=== PATIENT | female | born 1995 | race Two or more races ===

== ENCOUNTER 2024-04-04 19:57 | Emergency (ER) | payer MEDICAID, SELFPAY ==
[2024-04-04 18:58] VITALS: BMI 34.7
[2024-04-04 19:09] VITALS: BP 128/69; PULSE 118; RESP 100; RESP 19; TEMP 36.9
[2024-04-04 19:13] VITALS: BP 118/59; PULSE 125
[2024-04-04 19:15] VITALS: BP 116/64; PULSE 123
[2024-04-04 20:02] VITALS: BMI 34.7
[2024-04-04 20:07] VITALS: BP 119/78; PULSE 121; RESP 20; TEMP 37.2; O2SAT 96
--- NOTE | 2024-04-04 20:11 | XR_ITS ---
Examination: Complete OB ultrasound greater than 14 weeks Date and time of exam: April 04, 2024 2106 hrs. Indications: Onset right pelvic pain today Findings: Viable intrauterine single fetus with single amniotic sac presentation cephalic Cardiac motion 169 bpm Placenta anterior grade 2 Umbilical cord insertion 3 vessel seen Amniotic fluid index adequate Cervix 3.3 cm Right ovary 3.3 x 1.7 x 2.7 cm arterial flow Left ovary obscured by bowel gas. Composite estimated gestational age based on BPD, head circumference, abdominal circumference, femur length is 20 weeks 2 days Estimated weight 342 g. Survey of intracranial anatomy, spinal anatomy, abdominal anatomy, four-chamber heart performed with no abnormalities identified. Impression: Viable intrauterine gestation cephalic presentation Estimated gestational age 20 weeks 2 days.
--- NOTE | 2024-04-04 20:12 | EDNOTE_ITS ---
ED Abdominal Pain RME/HPI General Chief Complaint: Abdominal Pain Stated complaint: RIGHT UPPER ABD PAIN Time seen by provider: 04/04/24 20:12 Arrival date/time: 04/04/24 19:57 Source: patient, RN notes reviewed and old records reviewed Mode of arrival: ambulatory Limitations: no limitations RME / HPI RME / HPI narrative: 28yof approx 26 weeks gestation presents to ED for RLQ pain that started this morning. Pain worsens with movement and ambulation. No fever, N/V/D, dysuria, hematuria or vaginal bleeding reported. No medications or treatment since symptom onset. Patient cleared by OB upstairs prior to ED eval. Related Data Home Medications ?Medication ?Instructions ?Recorded ?Confirmed vit no.95-ferrous 1 tab PO 04/04/24 fumarate 28 mg-folic acid 800 mcg tablet () Allergies Allergy/AdvReac Type Severity Reaction Status Date / Time No Known Allergies Allergy Verified 03/16/23 11:20 Review of Systems Review of Systems Systems Reviewed: All systems reviewed, normal except as documented Constitutional Constitutional: Denies chills and Denies fever(s) Gastrointestinal Gastrointestinal: Reports abdominal pain, Denies loose stools, Denies nausea and Denies vomiting Genitourinary Genitourinary: Denies abnormal vaginal bleeding, Denies dysuria, Denies flank pain, Denies hematuria and Denies vaginal discharge Past Medical History Past Medical History GASTROINTESTINAL: Positive Obesity HEMATOLOGIC: Positive Anemia Surgical History SURGICAL: Positive Section Social History SMOKING STATUS: Never smoker SUBSTANCE USE: does not use ALCOHOL: Never ED Exam General Limitations: Present no limitations General appearance: Present alert, in no apparent distress and obese Head Head exam: Present atraumatic and normocephalic Eye Eye exam: Present normal appearance, PERRL and EOMI ENT ENT exam: Present normal exam and mucous membranes moist Neck Neck exam: Present normal inspection and full ROM Chest Chest inspection: Present normal inspection and symmetric chest wall rise Respiratory Respiratory exam: Present normal lung sounds bilaterally; Absent respiratory distress Cardiovascular Cardiovascular exam: Present regular rate and normal rhythm Abdominal Exam Abdominal exam: Present soft, tenderness (Mild, RLQ) and other (Gravid uterus); Absent distention, guarding or rebound Extremities Exam Extremities exam: Present normal inspection and full ROM Back Exam Back exam: Absent CVA tenderness (R) or CVA tenderness (L) Neurological Exam Neurological exam: Present alert and oriented X3 Psychiatric Psychiatric exam: Present normal affect and normal mood Skin Skin exam: Present warm, dry, intact and normal color Course Quality Measures none Orders Category Date Time Status heart tone auscultation NEEDED Care 04/04/24 18:54 Completed US OB >= 14 weeks Fetus Stat Exams 04/04/24 20:11 Completed CBC Stat Lab 04/04/24 20:21 Completed CMP [Comprehensive Metabolic Panel] Stat Lab 04/04/24 20:21 Completed Lipase Stat Lab 04/04/24 20:21 Completed UA [Urinalysis] Stat Lab 04/04/24 20:28 Completed Vital Signs Vital signs: Vital Signs Temperature 98.5 F 04/04/24 19:09 Pulse Rate 118 H 04/04/24 19:09 Respiratory Rate 19 04/04/24 19:09 Blood Pressure 128/69 04/04/24 19:09 Abdominal Pain MDM MDM Narrative MDM Narrative:: 28yof approx 26 weeks gestation presents to ED for RLQ pain that started this morning. Pain worsens with movement and ambulation. No fever, N/V/D, dysuria, hematuria or vaginal bleeding reported. No medications or treatment since symptom onset. Patient cleared by OB upstairs prior to ED eval. Patient updated on labs and imaging. Abdominal pain most likely related to . Low suspicion for appendicitis based on history, exam and ED workup; however, encouraged close observation of symptoms over the next 24-48 hours. Strict RTED precautions given. Patient verbalized understanding and is agreeable to plan of care. Patient data External records reviewed:: [facility] previous records (03/16/2023 ED visit for BPBPR) Clinical information provided by:: patient Social determinants that could affect healthcare access:: none Patient has the following chronic illnesses:: Obesity How is presenting disease/condition affected by chronic disease/condition?: exacerbated by Evaluation data The following diagnostics were reviewed and interpreted by me:: lab results and radiology exam(s) Lab and/or radiology exams considered but not ordered:: MRI abdomen: Low suspicion for appendicitis at this time Interpretation Summary: WBC 12 Hgb 12.5 UA negative OB ultrasound: Viable IUP per my read Medications / Prescriptions Medications or Prescriptions considered but not ordered:: No antibiotics recommended at this time Medication administrations:: None Consultations Consultation(s) initiated? (list below): No Diagnosis Differential diagnosis abdominal pain: other (Appendicitis, mesenteric adenitis, round ligament pain, constipation, UTI, missed , kidney stone) Most likely diagnosis given after review of the tests above:: Abdominal pain in Admission Indicated Admission indicated?: not indicated Admission Request Was there a request for admission?: No Disposition Plan Disposition Plan: Discharge Discharge Attestation Discharge Attestation: The patient and all family members were given an opportunity to ask questions and understood the discharge instructions. Discharge instructions specifically effects, indications for sooner follow up or return to the emergency department, and the expected course of current diagnosis. Patient condition: Stable Discharge Plan Plan Patient Disposition: HOME (Self Care) Patient condition on transfer: Stable Prescriptions/Referrals Prescriptions/Med Rec: No Action PNV cmb#95-ferrous fumarate-FA [] 28 mg iron- 800 mcg Tablet 1 tab PO Referrals: No Primary/Family,Physician [Referring Provider] - Problem List Clinical Impression: Abdominal pain in Patient/Caregiver Discharge Instructions Education Materials: ED Abdominal Pain Appendx Poss Additional Instructions: Your abdominal pain may be related to your . Although suspicion is low, appendicitis cannot be ruled out at this time. Observe your symptoms over the next 24 hours. Return to ED for repeat exam if symptoms persist or worsen. Print Language: Bengali Stand Alone Forms: Liseth Award Info., Patient Portal Info Letter, Work/Release Restrictions PA/ESMER Supervising Physician KP Supervising Physician: David
[2024-04-04 20:34] LABS: Collection Type, Urine Clean Catch
[2024-04-04 20:55] LABS: Alanine Aminotransferase 39 U/L (10-49); Albumin, Serum 4.7 gm/dL (3.5-5.0); Albumin/Globulin Ratio 1.7 (1.2-2.2); Alkaline Phosphatase 50 U/L (46-116); Anion Gap 10 (7-16); Aspartate Amino Transferase 31 U/L (0-34); BUN/Creatinine Ratio 13 Ratio (12-20); Bilirubin,Total 0.3 mg/dL (0.3-1.2); Blood Urea Nitrogen < 5 mg/dL (9-23); Calcium 9.8 mg/dL (8.3-10.6); Calcium (Corrected) 9.8 mg/dL (8.5-10.1); Carbon Dioxide 22.3 mMol/L (20.0-31.0); Chloride 102 mMol/L (98-107); Creatinine (Component) 0.4 mg/dL (0.6-1.3); Estimated Creatinine Clearance 208.8 mL/min (>60); Globulin 2.8 gm/dL (2.3-3.5); Glucose 99 mg/dL (74-106); Lipase 43 U/L (12-53); Osmolality,Calculated 265 (275-295); Potassium 3.5 mMol/L (3.4-5.1); Sodium 134 mMol/L (136-145); Total Protein 7.5 gm/dL (5.7-8.2); eGFR > 60 See Note
[2024-04-04 21:00] LABS: Basophils % (Auto) 0 % (0-2.5); Eosinophils % (Auto) 0 % (0-10); Hematocrit 36.8 % (36.0-46.0); Hemoglobin 12.5 g/dL (12.0-16.0); Immature Granulocytes % (Auto) 1 % (0-0); Immature Granulocytes Auto 0.08 Thou/mm3 (0.00-0.00); Lymphocytes # (Auto) 0.9 Thou/mm3 (1.0-4.8); Lymphocytes % (Auto) 7 % (10-50); Mean Corpuscular Volume 82 fL (80-100); Monocytes % (Auto) 8 % (0-12); Neutrophils # (Auto) 10.6 Thou/mm3 (1.8-7.7); Neutrophils % (Auto) 84 % (37-80); Nucleated Red Blood Cell % 0 /100 WBC (0); Platelet Count 269 Thou/mm3 (140-440); RDW Standard Deviation 40.3 fL (36.4-46.3); Red Blood Count 4.47 Miln/mm3 (4.00-5.20); White Blood Count 12.6 Thou/mm3 (3.6-11.0)
[2024-04-04 21:04] LABS: Bilirubin,Urine Negative (Negative); Blood,Urine Trace (Negative); Clarity,Urine Clear (Clear/Hazy); Color,Urine Lt-Yellow (Lt Yel-Yel); Glucose, Urine Negative (Negative); Ketones,Urine 1+ (Negative); Leukocyte Esterase,Urine Negative (Negative); Nitrite,Urine Negative (Negative); Protein,Urine Trace (Neg - Trace); RBC,Urine 3 /hpf (0-3); Specific Gravity,Urine 1.024 (1.001-1.035); Squamous Epithelial Cell,Urine 1 /hpf (0-5); Urobilinogen,Urine Negative mg/dL (0.0-1.0); WBC,Urine < 1 /hpf (0-5)
--- NOTE | 2024-04-04 22:19 | PC.NURSE ---
DISCHARGE FROM ER.
== END 2024-04-04 22:25 | disposition home or self-care (01) ==
LOC: SERX 20:01
PROVIDERS: Physician Assistant; Emergency Provider Emergency Medicine; PCP Physician Assistant
DX: O26.892 Other specified pregnancy related conditions, second trimester (principal); R10.31 Right lower quadrant pain; Z3A.26 26 weeks gestation of pregnancy
CPT/HCPCS: 36415; 59025; 76805; 80053; 81001; 83690; 85025; 99284

== ENCOUNTER 2024-07-24 16:54 | Observation (INO) | payer MEDICAID, SELFPAY ==
[2024-07-24] VITALS (10 sets, daily range): BP systolic 101–114; BP diastolic 58–72; PULSE 93–103; RESP 18–97; TEMP 36.5; O2SAT 97–99; BMI 36.2
== END 2024-07-24 17:50 | disposition home or self-care (01) ==
PROVIDERS: Admitting Provider Obstetrics & Gynecology; PCP Specialist; Visit Provider Obstetrics & Gynecology
DX: O36.8130 Decreased fetal movements, third trimester, not applicable or unspecified (principal); Z3A.35 35 weeks gestation of pregnancy
CPT/HCPCS: 59025; 59899; G0378

== ENCOUNTER 2024-08-08 07:31 | Inpatient (IN) | payer MEDICAID, SELFPAY ==
[2024-08-08] VITALS (42 sets, daily range): BP systolic 100–141; BP diastolic 73–98; PULSE 72–98; RESP 15–98; TEMP 36.3–36.8; O2SAT 93–100; BMI 37.0
[2024-08-08] MEDS: RINGERS LACTATED 1000 ML 1,000 ML 999 ML IV (08:00)
[2024-08-08] MEDS: ONDANSETRON INJ 2 MG/ML INJ 2 ML 4 MG IV (08:11)
[2024-08-08 08:57] LABS: Basophils % (Auto) 0 % (0-2.5); Eosinophils # (Auto) 0.1 Thou/mm3 (0.0-0.5); Eosinophils % (Auto) 1 % (0-10); Hematocrit 32.8 % (36.0-46.0); Hemoglobin 10.2 g/dL (12.0-16.0); Immature Granulocytes % (Auto) 1 % (0-0); Immature Granulocytes Auto 0.09 Thou/mm3 (0.00-0.00); Lymphocytes % (Auto) 22 % (10-50); Mean Corpuscular HGB Conc 31.1 g/dl (31.0-37.0); Mean Corpuscular Hemoglobin 22.7 pg (25.0-35.0); Mean Corpuscular Volume 73 fL (80-100); Monocytes # (Auto) 0.7 Thou/mm3 (0.0-0.8); Monocytes % (Auto) 7 % (0-12); Neutrophils # (Auto) 6.2 Thou/mm3 (1.8-7.7); Neutrophils % (Auto) 69 % (37-80); Nucleated Red Blood Cell % 0 /100 WBC (0); Platelet Count 263 Thou/mm3 (140-440); RDW Standard Deviation 40.5 fL (36.4-46.3); Red Blood Count 4.49 Miln/mm3 (4.00-5.20)
[2024-08-08] MEDS: RINGERS LACTATED 1000 ML 1,000 ML 100 ML IV (09:00)
[2024-08-08 09:09] LABS: Syphilis Nonreactive (Nonreactive)
--- NOTE | 2024-08-08 09:38 | PD.LDHP ---
Documentation for date of: 08/08/24 OB Labor/Induct. HPI History of Present Illness Chief complaint: It is in labor : 6 Para: 3 Term pregnancies: 2 pregnancies: 1 Living children: 3 History of Abortions: Spontaneous and Elective: 2 History of Vaginal deliveries: 1 History of sections: Yes (x2) History of : No Date of last menstrual period: 11/20/23 DES: 08/26/24 Gestational age based on last menstrual period: 37 History of present illness: Eunice is a 28-year-old 6 para 3-0-2-3 at 37 weeks and 3 days with a estimated due date of 08/26/2024 who presents for contractions that started earlier today during her triage visit she progressed from 1 cm to 3 cm dilatation. Patient reports contractions every 3 to 5 minutes. She denies any leakage of fluid or vaginal bleeding labs include blood group B+ rubella immune hepatitis B negative GBS is unknown RPR is nonreactive HIV negative gonorrhea and Chlamydia are negative hemoglobin on admission is 10.2 hematocrit of 37 8 platelet counts of 243,000. History of Present Adequate Care: Yes Labs Labs: Positive: Rubella Titre, Negative: RPR, Hepatitis B, HIV, Chlamydia and Gonorrhea and Unknown: Herpes Type 1, Herpes Type 2, Group Beta Strep and Covid-19 Past Medical History Surgical History SURGICAL: Positive Section (x2) Meds Home Medications and Allergies Home Medications ?Medication ?Instructions ?Recorded ?Confirmed ?Type vit no.95-ferrous 1 tab PO .q day 04/04/24 07/24/24 History fumarate 28 mg-folic acid 800 mcg tablet () Allergies Allergy/AdvReac Type Severity Reaction Status Date / Time No Known Allergies Allergy Verified 08/08/24 07:44 OB Exam Physical Exam Vital signs: Temp Pulse Resp BP Pulse Ox O2 Del Method 97.5 F 96 20 124/73 97 Room Air 08/08/24 07:54 08/08/24 07:54 08/08/24 07:54 08/08/24 07:54 08/08/24 09:36 08/08/24 07:35 Constitutional Constitutional: no acute distress Routine HEENT Exam Head: Present normocephalic and atraumatic Eye: Present EOMI and PERRL ENT: Present mucous membranes moist Routine Neck Exam Neck: Present supple and trachea midline Routine Cardiovascular Exam Cardiovascular: Present RRR Routine Abdominal Exam Abdominal: Present soft and normoactive bowel sounds Detailed Labor and Delivery Exam Dilation (cm): 3 Effacement (%): 50 Cervix position: mid station: -3 Consistency: soft Presentation: Vertex Baseline heart rate: 145 monitor accelerations: 15x15 monitor decelerations: None Contraction frequency (min): 5 Routine Extremities Exam Extremities: Present full ROM Routine Skin Exam Skin: Present intact, dry and warm Routine Neurological Exam Neurological: Present alert, oriented X3 and CN II-XII intact Routine Psychiatric Exam Psychiatric: Present normal affect and normal thought process OB Results Labs 08/08/24 08:00 Labs: Short CBC 08/08/24 Range/Units 08:00 WBC 9.0 (3.6-11.0) Thou/mm3 Hgb 10.2 L (12.0-16.0) g/dL Hct 32.8 L (36.0-46.0) % Plt Count 263 (140-440) Thou/mm3 OB Assessment & Plan Assessment and Plan (1) Previous delivery affecting : Status: Acute Assessment and plan: Admit to inpatient status for repeat low transverse IV access, CBC, type and screen, LR at 125, RPR, COVID-19 test GBS negative Ancef 2 g prior to surgery start Buitrago catheter to drainage SCDs for DVT prophylaxis Anesthesia to preop for spinal anesthesia Scheduled for surgery.
[2024-08-08] MEDS: CITRIC ACID/SODIUM CITR 15 ML UDC (BICITRA) 30 ML PO (09:46)
[2024-08-08] MEDS: ceFAZolin/D5W 2 GM IV 2 GM/100 ML BAG IV (09:46)
[2024-08-08] MEDS: FAMOTIDINE INJ 10 MG/ML VIAL 2 ML 20 MG IV (09:46)
[2024-08-08] MEDS: LOPERAMIDE 2 MG CAPSULE 4 MG PO (11:23)
--- NOTE | 2024-08-08 11:46 | PD.LDDELS ---
Data ([facility]) Data Hx Section: Yes (x2) : 6 Term: 2 : 1 Livin Abortions: Spontaneous & Theraputic: 2 Delivery Data ([facility]) Delivery Data Delivered by: Delivery Method Presentation: Vertex
[2024-08-08] MEDS: OXYTOCIN in NS 20 units 20 UNIT/1,000 ML BAG 125 UNIT IV ×2 (11:58→20:18)
[2024-08-08] MEDS: KETOROLAC INJ 30 MG/ML VIAL IVP ×2 (13:53→21:41)
[2024-08-08] MEDS: SIMETHICONE 80 MG CHEW PO (21:41)
[2024-08-08] MEDS: Milk Of Magnesia Susp 30 ML UDC PO (21:41)
[2024-08-09 00:54] VITALS: BP 105/60; PULSE 88; RESP 18; TEMP 36.6; O2SAT 95
[2024-08-09] MEDS: HYDROcodone/APAP 5/325 TABLET 2 TAB PO (03:04)
[2024-08-09] MEDS: KETOROLAC INJ 30 MG/ML VIAL IVP ×2 (04:46→20:38)
[2024-08-09] MEDS: SIMETHICONE 80 MG CHEW PO (04:46)
[2024-08-09 06:11] VITALS: BP 113/74; PULSE 88; RESP 16; TEMP 36.4; O2SAT 95
[2024-08-09 06:51] LABS: Basophils % (Auto) 0 % (0-2.5); Eosinophils % (Auto) 0 % (0-10); Hematocrit 26.8 % (36.0-46.0); Immature Granulocytes % (Auto) 1 % (0-0); Lymphocytes # (Auto) 1.6 Thou/mm3 (1.0-4.8); Lymphocytes % (Auto) 9 % (10-50); Mean Corpuscular HGB Conc 32.1 g/dl (31.0-37.0); Mean Corpuscular Hemoglobin 22.9 pg (25.0-35.0); Mean Corpuscular Volume 71 fL (80-100); Monocytes # (Auto) 1.5 Thou/mm3 (0.0-0.8); Monocytes % (Auto) 9 % (0-12); Neutrophils # (Auto) 14.9 Thou/mm3 (1.8-7.7); Neutrophils % (Auto) 82 % (37-80); Nucleated Red Blood Cell % 0 /100 WBC (0); Platelet Count 206 Thou/mm3 (140-440); Red Blood Count 3.76 Miln/mm3 (4.00-5.20); White Blood Count 18.1 Thou/mm3 (3.6-11.0)
[2024-08-09 06:56] LABS: Hemoglobin 8.6 g/dL (12.0-16.0)
[2024-08-09] MEDS: LACTULOSE SYRUP 20 GM/30 ML UDC PO (07:25)
[2024-08-09] MEDS: MORPHINE SULF INJ 10 MG/ML VIAL 2 MG IVP ×3 (09:01→22:34)
[2024-08-09] MEDS: DOCUSATE SOD 100 MG CAPSULE PO (09:07)
--- NOTE | 2024-08-09 09:18 | XR_ITS ---
Examination: Abdomen 2 views Technique one AP upright AP supine abdomen 2 views Date and time: August 09, 2024 at 0934 hrs. Indications: Nausea vomiting today. Findings: Prominent colonic ileus No free air Mild prominence of ventricle Possible distended urinary bladder Impression: Findings most consistent with prominent colonic ileus, clinical correlation advised Suspicious for distended urinary bladder
--- NOTE | 2024-08-09 09:40 | ESPR_ITS ---
Subjective Subjective Interval history: Eunice is s/p uncomplicated RLTCS after presenting with abdominal pain, diarrhea, and diagnosed with early labor. She received imodium for diarrhea (was having diarrheal episodes in triage and again on OR table) and then has had abdominal distension with gas pains after delivery, so Dr. Salcedo ordered lactulose and miralax, requested the nurse to encourage ambulation and hold the narcotic. When I went to see her this morning, she was writhing in pain and moaning- states she has been in severe pain since 299. RN reports she is 20 minutes early for norco dose, has had toradol regularly since surgery, had a dose of ofirimev last night. She notes having episodes of emesis on a few occasions since last night (ate fruit last night). Burping but not passing flatus. She ambulated once last night without lightheadedness/dizziness. Lochia has been appropriate. Voiding spontaneously since molina was removed, no issues. No fevers/chills, no CP/SOB. Exam Vital Signs Temp Pulse Resp BP Pulse Ox O2 Del Method 97.5 F 88 16 113/74 95 Room Air 08/09/24 06:11 08/09/24 06:11 08/09/24 06:11 08/09/24 06:11 08/09/24 06:11 08/09/24 06:11 Narrative Exam General: well developed, well nourished, moaning in pain Cardiac: normal heart rate Lungs: breathing without distress Abdomen: Distended, post-gravid, appropriately tender to palpation, no rebound or guarding, pfannenstiel incision covered by dry/clean/intact dressing. Incision well reapproximated. Fundus firm at u-2cm. Extremities: no pain with palpation of calves, trace edema of BLE Objective Labs 08/09/24 04:43 Labs: Laboratory Results - last 24 hr 08/09/24 04:43 WBC 18.1 H D RBC 3.76 L Hgb 8.6 L Hct 26.8 L MCV 71 L MCH 22.9 L MCHC 32.1 RDW Std Deviation 40.0 Plt Count 206 D Neut % (Auto) 82 H Lymph % (Auto) 9 L [place] % (Auto) 9 Eos % (Auto) 0 Baso % (Auto) 0 Neut # (Auto) 14.9 H Lymph # (Auto) 1.6 [place] # (Auto) 1.5 H Eos # (Auto) 0.0 Baso # (Auto) 0.0 Immature Gran # (Auto) 0.10 H Absolute Nucleated RBC 0.00 Immature Gran % 1 H Nucleated RBC % 0 Assessment & Plan Problem List (1) Abdominal distension: Status: Acute Assessment and plan: Eunice is a 28yo G6 [id number] s/p uncomplicated RLTCS after presenting in early labor with abdominal pain, diarrhea and ctx, now having significant abdominal distension with n/v and pain on POD 1. Presume current bowel issues are related to initial presenting bowel issue which was compounded by post-op state with imodium given followed by lactulose/miralax- Will rule out ileus with imaging. Vitals wnl. Hemodynamically stable with no evidence of infection. Appropriate change in H/H from 10.2 to 8.6. complicated by: Hx of psychosis (social work consult was placed) Hx of prior sections Current BMI 37 Anemia Plan: -Continue routine /post-op care -Morphine 2mg IV x1 and Ofirimev 1g IV x1 now. Hold oral narcotic. Continue Toradol. -Zofran 4mg IV x1 -NPO -Abdominal x-ray supine and upright ordered to rule out ileus -Hold bowel meds -Once pain is well managed, will encourage ambulation and use of IS (2) Previous delivery affecting : Status: Acute (3) History of psychosis: Status: Acute (4) Anemia affecting in third trimester: Status: Acute Time Spent With Patient Time: Total time spent is greater than 50% in coordination of care (as documented) at patient's floor/unit and/or counseling patient:
--- NOTE | 2024-08-09 09:40 | PC.SS ---
HIDE SELECTOR conducted bedside contact with the patient to address nursing referral indicating patient possesses history of depression.? HIDE SELECTOR introduced self and role.? Present with patient was Danny FAN.? Patient gave consent for FOB to be present during discussion.? HIDE SELECTOR discussed basis of referral.? Patient confirmed past history of depression.? Patient is not currently participating with mental health services.? Patient reports past history includes self-harm behavior at age 21.? Patient reports engaging in counseling following event.? Patient stated last time self-harm behavior engaged in.? Patient reports that depression is not impairing daily functioning.? Patient shared ability to maintain employment and care for children as confirmation. ?FOB relayed to HIDE SELECTOR no concern regarding patient?s emotional state.? Infant, Rama; is the patient?s 4th child.? Other children are ages 7, 5, 4 years old.? delivered via .? Patient plans on combo feeding the infant. ?OB services provided by Dr. Schaeffer.? Patient describes consistency with OB appointments.? Patient is aligned with [facility].? Patient is not receiving WIC.? Patient denies history of alcohol/drug abuse.? Patient denies CWS intervention.? Patient denies episodes of domestic violence.? Patient has access to appropriate supplies and equipment; to include a car seat.? FOB will provide transportation upon discharge.? Patient describes possessing support system consisting of FOB and extended family.? HIDE SELECTOR provided the patient with community resources to include [facility] Network, Crisis Line and Warm Line.? No further intervention required at this time, social work lecturer will be available to address any further concerns.? HIDE SELECTOR updated bedside nurse.?
[2024-08-09] MEDS: ONDANSETRON INJ 2 MG/ML INJ 2 ML 4 MG IV (09:59)
[2024-08-09] MEDS: ACETAMINOPHEN INJ 1,000 MG/100 ML VIAL 1000 MG IV ×2 (10:00→16:32)
--- NOTE | 2024-08-09 11:00 | PC.NURSE ---
NG tube to right nare placement confirmed with xray pt connected to LIS as ordered by pt tolerated well
[2024-08-09] MEDS: RINGERS LACTATED 1000 ML 1,000 ML 125 ML IV ×2 (11:31→18:17)
--- NOTE | 2024-08-09 11:40 | XR_ITS ---
Examination: AP chest single view Technique one AP portable semiupright chest single view Date and time: August 09, 2024, 1155 hrs. Orogastric tube placement. Findings: Orogastric tube coiled in the stomach Prominently air distended colon Mild prominence of ventricle Impression: Orogastric tube coiled in the stomach
[2024-08-09 12:15] VITALS: BP 115/67; PULSE 85; RESP 17; TEMP 36.7; O2SAT 97
[2024-08-09 17:00] VITALS: BP 128/84; PULSE 88; RESP 16; TEMP 36.6; O2SAT 97
[2024-08-09 20:00] VITALS: BP 127/82; PULSE 105; RESP 19; TEMP 36.8; O2SAT 95
--- NOTE | 2024-08-09 20:03 | XR_ITS ---
Examination: AP chest single view Technique one AP portable semiupright chest single view Date and time: August 09, 2024 2013 hours INDICATIONS: Reposition orogastric tube FINDINGS: Orogastric tube in the stomach satisfactory position, the tube is not coiled in the stomach noted on the prior study at 11:55 AM Chest film is otherwise unchanged IMPRESSION: Orogastric tube satisfactory position
[2024-08-09 20:48] LABS: Basophils % (Auto) 0 % (0-2.5); Eosinophils # (Auto) 0.1 Thou/mm3 (0.0-0.5); Eosinophils % (Auto) 1 % (0-10); Hematocrit 26.7 % (36.0-46.0); Hemoglobin 8.6 g/dL (12.0-16.0); Immature Granulocytes % (Auto) 1 % (0-0); Immature Granulocytes Auto 0.08 Thou/mm3 (0.00-0.00); Lymphocytes # (Auto) 1.4 Thou/mm3 (1.0-4.8); Lymphocytes % (Auto) 12 % (10-50); Mean Corpuscular HGB Conc 32.2 g/dl (31.0-37.0); Mean Corpuscular Hemoglobin 22.6 pg (25.0-35.0); Mean Corpuscular Volume 70 fL (80-100); Monocytes # (Auto) 0.8 Thou/mm3 (0.0-0.8); Monocytes % (Auto) 7 % (0-12); Neutrophils # (Auto) 9.5 Thou/mm3 (1.8-7.7); Neutrophils % (Auto) 80 % (37-80); Nucleated Red Blood Cell % 0 /100 WBC (0); Platelet Count 239 Thou/mm3 (140-440); RDW Standard Deviation 39.8 fL (36.4-46.3); Red Blood Count 3.81 Miln/mm3 (4.00-5.20); White Blood Count 11.8 Thou/mm3 (3.6-11.0)
[2024-08-09 21:03] LABS: Alanine Aminotransferase 12 U/L (10-49); Albumin, Serum 3.3 gm/dL (3.5-5.0); Albumin/Globulin Ratio 1.4 (1.2-2.2); Alkaline Phosphatase 142 U/L (46-116); Anion Gap 9 (7-16); Aspartate Amino Transferase 29 U/L (0-34); BUN/Creatinine Ratio 13 Ratio (12-20); Bilirubin,Total 0.4 mg/dL (0.3-1.2); Blood Urea Nitrogen 8 mg/dL (9-23); Calcium 7.9 mg/dL (8.3-10.6); Calcium (Corrected) 8.5 mg/dL (8.5-10.1); Chloride 106 mMol/L (98-107); Creatinine (Component) 0.6 mg/dL (0.6-1.3); Estimated Creatinine Clearance 144.1 mL/min (>60); Globulin 2.4 gm/dL (2.3-3.5); Glucose 102 mg/dL (74-106); Osmolality,Calculated 277 (275-295); Potassium 3.8 mMol/L (3.4-5.1); Sodium 140 mMol/L (136-145); Total Protein 5.7 gm/dL (5.7-8.2); eGFR > 60 See Note
--- NOTE | 2024-08-09 21:20 | PD.LDPN ---
Documentation for date of: 08/09/24 OB Labor Progress Note Assessment and Plan Comments: Patient has had abdominal pain throughout the day that we have been managing with ofirmev and IV morphine prn. Just ordered toradol 30mg IV x1. Recent repeat CXR shows NG tube appropriately placed (was coiled on earlier imaging and pulled back a bit). 175ml total suctioned out since placement. She had difficulty voiding earlier, but then was able to void 600ml. She does not want to ambulate 2/2 pain. SCDs are on and functioning. I just saw her and removed the outer bandage. Prineo bandage is intact with no erythema/induration. Abdominal distention has improved, abdomen is soft. Vitals are normal. Labs recently resulted no change in Hgb from this morning and electrolytes all normal. At this point, we will keep her NPO with NG to LIS, continue IV pain meds and await normal bowel function to resume. Elissa Morin MD
[2024-08-10] VITALS: BP 125/83; PULSE 89; RESP 18; TEMP 36.4; O2SAT 93
[2024-08-10] MEDS: RINGERS LACTATED 1000 ML 1,000 ML 125 ML IV (02:33)
[2024-08-10 04:30] VITALS: BP 114/76; PULSE 103; RESP 19; TEMP 36.3; O2SAT 92
[2024-08-10] MEDS: MORPHINE SULF INJ 10 MG/ML VIAL 2 MG IVP ×2 (04:36→08:35)
[2024-08-10] MEDS: ACETAMINOPHEN INJ 1,000 MG/100 ML VIAL 1000 MG IV (06:40)
[2024-08-10 07:22] VITALS: BP 122/79; PULSE 102; RESP 18; TEMP 36.7; O2SAT 93
--- NOTE | 2024-08-10 07:54 | PD.LDPPPRG ---
Subjective Subjective Interval history: Patient doing MUCH better. Pain is controlled with IV meds. She remains NPO with NG tube in place. Last night she had a bowel movement and she has been passing gas- which has improved her pain greatly. No nausea/vomiting. She ambulated with no lightheadedness/dizziness. Voiding spontaneously now without issues. No fevers/chills, no CP/SOB. Exam Vital Signs Temp Pulse Resp BP Pulse Ox O2 Del Method 98.1 F 102 H 18 122/79 93 L Room Air 08/10/24 07:22 08/10/24 07:22 08/10/24 07:22 08/10/24 07:22 08/10/24 07:22 08/10/24 07:22 Narrative Exam General: well developed, well nourished, no acute distress, conversant HEENT: NG tube in place Cardiac: normal heart rate Lungs: breathing without distress Abdomen: soft, post-gravid, non-tender, no rebound or guarding, pfannenstiel incision covered by dry/clean/intact prineo bandage. Incision well reapproximated. No erythema, drainage or induration. Fundus firm at u-2cm. Extremities: no pain with palpation of calves, trace edema of BLE Objective Labs 08/09/24 20:17 08/09/24 20:17 Labs: Laboratory Results - last 24 hr 08/09/24 20:17 WBC 11.8 H D RBC 3.81 L Hgb 8.6 L Hct 26.7 L MCV 70 L MCH 22.6 L MCHC 32.2 RDW Std Deviation 39.8 Plt Count 239 D Neut % (Auto) 80 Lymph % (Auto) 12 [place] % (Auto) 7 Eos % (Auto) 1 Baso % (Auto) 0 Neut # (Auto) 9.5 H Lymph # (Auto) 1.4 [place] # (Auto) 0.8 Eos # (Auto) 0.1 Baso # (Auto) 0.0 Immature Gran # (Auto) 0.08 H Absolute Nucleated RBC 0.00 Immature Gran % 1 H Nucleated RBC % 0 Sodium 140 Potassium 3.8 Chloride 106 Carbon Dioxide 25.0 Anion Gap 9 BUN 8 L Creatinine 0.6 Estim Creat Clear Calc 144.1 eGFR > 60 BUN/Creatinine Ratio 13 Glucose 102 Calculated Osmolality 277 Calcium 7.9 L Corrected Calcium 8.5 Total Bilirubin 0.4 AST 29 ALT 12 Alkaline Phosphatase 142 H Total Protein 5.7 Albumin 3.3 L Globulin 2.4 Albumin/Globulin Ratio 1.4 Assessment & Plan Problem List (1) Abdominal distension: Status: Acute (2) Previous delivery affecting : Status: Acute Assessment and plan: Eunice is a 28yo G6 [id number] s/p uncomplicated RLTCS after presenting in early labor with abdominal pain, diarrhea and ctx with development of ileus on POD 1. Doing better now on POD 2. NG tube was placed 08/09 and since then distention has improved, she had a BM and has been passing flatus which has greatly improved her pain. Vitals wnl. Hemodynamically stable with no evidence of infection. Appropriate change in H/H from 10.2 to 8.6 and stable on repeat. CBC and CMP were repeated last night and normal with exception of the anemia. complicated by: Hx of psychosis (social work consult was placed) Hx of prior sections Current BMI 37 Anemia Plan: -Continue routine /post-op care -Remove NG tube this morning -Clear liquid diet, continue IVF until fully tolerating PO -For pain: motrin 800mg PO Q8hr, norco 5/325mg PO Q4hr prn or 10/325mg PO Q6hr prn -Simethicone prn gas pains, zofran prn nausea -Encourage ambulation and use of IS (3) History of psychosis: Status: Acute (4) Anemia affecting in third trimester: Status: Acute Time Spent With Patient Time: Total time spent is greater than 50% in coordination of care (as documented) at patient's floor/unit and/or counseling patient:
[2024-08-10] MEDS: HYDROcodone/APAP 5/325 TABLET 1 TAB PO ×2 (12:05→20:19)
[2024-08-10] MEDS: IBUPROFEN TAB 400 MG TABLET 800 MG PO (14:25)
[2024-08-10 16:20] VITALS: BP 118/76; PULSE 96; RESP 16; TEMP 36.8; O2SAT 95
--- NOTE | 2024-08-10 17:26 | PC.NURSE ---
System downtime from [id number]- WU RN
[2024-08-10 20:00] VITALS: BP 110/73; PULSE 85; RESP 18; TEMP 36.8; O2SAT 97
--- NOTE | 2024-08-10 20:11 | PC.NURSE ---
Informed DR Morin of pts serosangoineous saturated abd pad from abd incision. Per doctor she will be by to look at it. new abd pad applied at this time
[2024-08-11] MEDS: LIDOCAINE HCL 1% 20 ML VIAL 10 ML INFL (00:08)
[2024-08-11] MEDS: HYDROcodone/APAP 5/325 TABLET 1 TAB PO ×4 (00:48→17:56)
--- NOTE | 2024-08-11 00:49 | ESPR_ITS ---
Documentation for date of: 08/11/24 OB Labor Progress Note Pelvic Exam Amniotic membrane status: Intact Assessment and Plan Comments: Over the course of the day yesterday, 2 abd dressings over the pfannenstiel inc ision were saturated with bloody fluid over time. I inspected the incision twice over the course of the day, and each time there was no active bleeding through the prineo bandage during observation. And yet, over time the bloody fluid would saturate the abd dressings. I came to the room and again inspected the incision. In less than an hour there was a silver dollar sized area of saturation of the abd dressing on the left side of the incision. At that point I counseled patient regarding my recommendation to place a few sutures to try to address the issue. She was amenable. I removed the prineo bandage and anesthetized the area along the left lateral aspect of the incision with 1% lidocaine after cleansing with betadine. At that point I placed 3 interrupted sutures as deep as I could (skin very well approximated with only a small defect that I was able to place the needle into) using 3-0 vicryl. Again observation aferwards revealed no bleeding and no immediate welling of bloody fluid. With compression along the skin incision I could still achieve small amounts of bloody fluid welling up. (No obvious seroma/hematoma visually). At that point I placed an abd and used tape to create a compression dressing. Will also apply abdominal binder for added compression. Will observe the area in the morning. Patient tolerated procedure well. Elissa Morin MD
[2024-08-11 03:03] VITALS: BP 126/86; PULSE 94; RESP 16; TEMP 36.8; O2SAT 97
[2024-08-11 08:00] VITALS: BP 121/81; PULSE 95; RESP 18; TEMP 36.7; O2SAT 97
[2024-08-11] MEDS: IBUPROFEN TAB 400 MG TABLET 800 MG PO (09:01)
--- NOTE | 2024-08-11 09:45 | PC.LAC ---
mom states that after c/s she wasn't feeling well so did formula only. states that baby has latched one time and she did well. mom states that she plans to pump once she is home. explained stimulation, skin to skin and hand expression to encourage her milk supply, as mom stated that bay was not satisfied with the milk supply at the breast. hand out for resource center.
--- NOTE | 2024-08-11 14:23 | XR_ITS ---
Examination: CT abdomen, without intravenous contrast. CT pelvis, without intravenous contrast. CT abdomen, with intravenous contrast. CT pelvis, with intravenous contrast. 2-D sagittal coronal reconstructions. Date and time of exam:August 11, 2024 1512 hours INDICATIONS: Status post incision and drainage status post CTDI: vol (mGy) 20.5 DLP: (mGycm) 1144 Technique: Multiple 3.0 axial images of the abdomen and pelvis without intravenous contrast, 3.0 mm slice thickness. Multiple 3.0 postcontrast images abdomen and pelvis also obtained, post intravenous injection 60 cc Isovue-370 2-D sagittal and coronal reconstructions. Low dose protocols were performed. One or more of the following dose reduction techniques were used; automated exposure control, adjustment of the mA and/or KV according to patient size, use of iterative reconstruction technique. Findings: Pneumoperitoneum No focal liver or splenic lesion Contracted gallbladder No pancreatic mass No renal or ureteral calculi No hydronephrosis No periappendiceal inflammatory change 3 cm fat-containing umbilical hernia enlarged uterus with thickened endometrial stripe, hyperdense with air densities, measuring 3 cm in the uterine fundal region and 3.5 cm in the cervix region Postop change in the anterior pelvic wall No pelvic abscess, bladder intact IMPRESSION: enlarged uterus with thickened endometrial stripe, consider pelvic sonography follow-up to assess for retained products of conception
[2024-08-11 16:00] VITALS: BP 124/86; PULSE 92; RESP 19; TEMP 36.7; O2SAT 97
--- NOTE | 2024-08-11 17:54 | PD.LDDS ---
DS: Providers Provider Date of admission: 08/08/24 09:17 Primary care physician: Physician No Primary/Family Admitting Provider: Andres Salcedo MD Attending Provider on Admission: Andres Salcedo MD Consults: 08/08/24 10:30 Referral Routine Comment: Attending Provider on DC: Elissa Morin MD Discharging Provider: Elissa Morin MD DS: Diagnosis Discharge Diagnosis (1) delivery delivered: Status: Acute (2) Previous delivery affecting : Status: Acute (3) Ileus, postoperative: Status: Acute (4) Anemia affecting in third trimester: Status: Acute (5) History of psychosis: Status: Acute Problem List Completed Was Problem List Reviewed/Reconciled?: Yes Summary/Hosp Course Brief History: Eunice is a 28yo G6 [id number] doing well on POD 3 s/p uncomplicated RLTCS after presenting in early labor with abdominal pain, diarrhea and ctx. She developed an ileus on POD 1. NG tube was placed 08/09 and removed 08/10 once she had a BM and was passing flatus with improved abdominal distention. She has continued to pass flatus and had a BM today. She has had serosanguinous seepage from the left aspect of her incision, so prineo bandage was removed on 08/10 and a few interrupted stitches were placed along that area after injecting lidocaine. She has continued to have seepage from the left side of the incision, so a CT abd/pelvis was performed on 08/11 which shows normal post-operative changes. At this time she is meeting all milestones and feels ready for discharge home. She is ambulating without lightheadedness, tolerating regular diet no n/v, spontaneously voiding without issue. She has no chest pain or shortness of breath. No fevers or chills. Pain well controlled. Vitals wnl. Hemodynamically stable with no evidence of infection. Appropriate change in H/H from 10.2 to 8.6 and stable on repeat. complicated by: Hx of psychosis (social work consult was performed) Hx of prior sections Current BMI 37 Anemia Peripartum Data Delivery Method: Low Transverse Episiotomy Description: None Procedures: Procedures Operation Date: 08/08/24 10:14 Actual Procedure Side Surgeon p in OB Not Applicable Andres Salcedo MD Status at Discharge Functional status at discharge: independent ambulation Overall status at discharge: patient is back to baseline Time Spent with Patient Time attestation: Total time spent providing and/or coordinating discharge services: Exam Vital Signs Temp Pulse Resp BP Pulse Ox O2 Del Method 98.0 F 92 19 124/86 H 97 Room Air 08/11/24 16:00 08/11/24 16:00 08/11/24 16:00 08/11/24 16:00 08/11/24 16:08/11/24 16:00 Narrative Exam General: well developed, well nourished, no acute distress, conversant Cardiac: normal heart rate Lungs: breathing without distress Abdomen: soft, post-gravid, non-tender, no rebound or guarding, pfannenstiel incision dry/clean/intact. Incision well reapproximated. No erythema or induration. Serosanguinous drainage from left aspect of incision decreased over the course of the day. Fundus firm at u-2cm. Extremities: no pain with palpation of calves, trace edema of BLE Additional findings Additional findings: Examination: CT abdomen, without intravenous contrast. CT pelvis, without intravenous contrast. CT abdomen, with intravenous contrast. CT pelvis, with intravenous contrast. 2-D sagittal coronal reconstructions. Date and time of exam:August 11, 2024 1512 hours INDICATIONS: Status post incision and drainage status post CTDI: vol (mGy) 20.5 DLP: (mGycm) 1144 Technique: Multiple 3.0 axial images of the abdomen and pelvis without intravenous contrast, 3.0 mm slice thickness. Multiple 3.0 postcontrast images abdomen and pelvis also obtained, post intravenous injection 60 cc Isovue-370 2-D sagittal and coronal reconstructions. Low dose protocols were performed. One or more of the following dose reduction techniques were used; automated exposure control, adjustment of the mA and/or KV according to patient size, use of iterative reconstruction technique. Findings: Pneumoperitoneum No focal liver or splenic lesion Contracted gallbladder No pancreatic mass No renal or ureteral calculi No hydronephrosis No periappendiceal inflammatory change 3 cm fat-containing umbilical hernia enlarged uterus with thickened endometrial stripe, hyperdense with air densities, measuring 3 cm in the uterine fundal region and 3.5 cm in the cervix region Postop change in the anterior pelvic wall No pelvic abscess, bladder intact IMPRESSION: enlarged uterus with thickened endometrial stripe, consider pelvic sonography follow-up to assess for retained products of conception Discharge Plan Plan Patient Disposition: HOME (Self Care) Patient condition on transfer: Stable Prescriptions/Referrals Prescriptions/Med Rec: New hydrocodone-acetaminophen 5-325 mg Tablet 1 tab PO Q6HR MDD 4 PRN (Reason: Patient rated pain 9 to 10) 7 Days Qty: 28 0RF ibuprofen 400 mg Tablet 800 mg PO Q8HR PRN (Reason: Pain Scale 4-6 (Moderate) 10 Days Qty: 30 0RF docusate sodium 100 mg Capsule 100 mg PO QDAY 30 Days Qty: 30 0RF ferrous sulfate 325 mg (65 mg iron) tablet 325 mg PO QDAY Qty: 30 0RF Continued PNV cmb#95-ferrous fumarate-FA [] 28 mg iron- 800 mcg Tablet 1 tab PO .q day Referrals: Duran Schaeffer MD [Physician] - No Primary/Family,Physician [Primary Care Provider] - Patient/Caregiver Discharge Instructions Discharge Activity: activity as tolerated and other Other Discharge Activity Instructions:: Follow up with Dr. Schaeffer tomorrow vaginal rest and no heavy lifting for 6 weeks. no [address] while taking narcotic. keep incision clean and dry, do not submerge. Other Discharge Diet Instructions: regular diet Education Materials: Breast Care After , After a , : Caring for Yourself, C Section Dc Print Language: Kazakh Activity Restrictions/Additional Instructions: follow up with Dr. Schaeffer on 08/12/24 at 2pm Stand Alone Forms: Liseth Award Info., Patient Portal Info Letter Discharge Order Discharge Orders: Discharge (Routine); Ordered 08/11/24 Ordered By: Elissa Morin Planned Discharge Date 08/11/24
== END 2024-08-11 18:50 | disposition home or self-care (01) | DRG 540 ==
LOC: S4NX 10:18 → S4SX 10:18
PROVIDERS: Obstetrics & Gynecology; Admitting Provider Obstetrics & Gynecology; Visit Provider Obstetrics & Gynecology
PROC: 10D00Z1 Extraction of Products of Conception, Low, Open Approach (ICD-10-PCS; CPT 59514; principal; 2024-08-08 10:00)
DX: O34.211 Maternal care for low transverse scar from previous cesarean delivery (principal); Z37.0 Single live birth; O99.63 Diseases of the digestive system complicating the puerperium; K56.7 Ileus, unspecified; Z3A.37 37 weeks gestation of pregnancy; F53.1 Puerperal psychosis; O99.02 Anemia complicating childbirth
CPT/HCPCS: 36415; 59025; 74019; 74178; 80053; 85025; 86780; 86850; 86900; 86901; A4649; J0131; J0689; J1100; J1885; J2210; J2250; J2270; J2274; J2371; J2405; J2590; J3490; J7120; Q9967; A9270

== ENCOUNTER 2024-12-21 16:28 | Emergency (ER) | payer MEDICAID, SELFPAY ==
[2024-12-21 16:47] VITALS: BP 104/71; PULSE 81; RESP 20; TEMP 37.1; O2SAT 96
--- NOTE | 2024-12-21 17:06 | XR_ITS ---
Examination: CT abdomen and pelvis without contrast. Coronal 3-D reconstructions. Sagittal 2-D reconstructions. Date and time of exam:December 21, 2024, 1844 hrs., Comparison August 11, 2024 Indications: Lower abdominal pain and now punching, August 08, 2024 CTDI: vol (mGy): 10.1 DLP: (mGycm): 544 Technique: Axial images of the abdomen have been obtained, 3 mm slice thickness Intravenous contrast material has not been administered. Low dose protocols were performed. One or more of the following dose reduction techniques were used; automated exposure control, adjustment of the mA and/or KV according to patient size, use of iterative reconstruction technique. Findings: No focal liver or splenic lesion No gallstones No renal or ureteral calculi, no hydronephrosis 15 mm fat-containing umbilical hernia No pericecal inflammatory change Diastases of the rectus muscles in the pelvis, 26 mm No uterine or pelvic mass Intact osseous structures Impression: Diastasis of the rectus muscles in the pelvis, 26 mm
--- NOTE | 2024-12-21 17:07 | PD.EDADULT ---
ED General RME/HPI General Chief complaint: General Adult/Misc Complain Stated complaint: C.SECTION /16, BALL ON L) PART OF INCISION Time Seen by Provider: 12/21/24 17:06 Arrival date/time: 12/21/24 16:28 CC: Low center abdominal pain with reducible outpouching HPI noticed it 2 months ago and now has become progressively larger, with pain rating down her left leg. Patient had a in July 2024 and has had dehiscence related complications secondary to to the . Patient noted this outpouching 2 months ago now is gotten worse. Patient has been waiting for CT from PCP but cannot wait any longer secondary to the pain. Patient denies nausea fever chills difficulty urinating constipation diarrhea vaginal bleeding or vaginal discharge. Patient is continues to breast-feed , has not regular menses, and is sexually active. Related Data Home Medications ?Medication ?Instructions ?Recorded ?Confirmed vit no.95-ferrous 1 tab PO .q day 04/04/24 07/24/24 fumarate 28 mg-folic acid 800 mcg tablet () Previous Rx's ?Medication ?Instructions ?Recorded ferrous sulfate 325 mg (65 mg 325 mg PO QDAY #30 tabs 08/11/24 iron) tablet Allergies Allergy/AdvReac Type Severity Reaction Status Date / Time No Known Allergies Allergy Verified 12/21/24 16:33 Review of Systems Review of Systems Narrative Review of Systems: GEN: No fever, no chills, no weight loss EYES: No discharge, no visual changes, no pain HEENT: No ear pain, no congestion, no sore throat PULM: No shortness of breath, no cough, no congestion CV: No chest pain, no dyspnea on exertion, no palpitations GI: No nausea, no vomiting, no diarrhea, + pain, no constipation : No frequency, no urgency, no dysuria MUSC/SKEL: No joint pain, no back pain SKIN: No rash PSYCH: No hallucinations, no depression HEME/LYMPH: No easy bleeding or bruising tendencies NEURO: No weakness, no headache Past Medical History Past Medical History NEUROLOGIC: Negative Neurological Disorders or Seizures CARDIAC: Negative Cardiac Disorders or Congestive Heart Failure RESPIRATORY: Positive Asthma and Pneumonia; Negative Chronic Obstructive Pulmonary Disease (COPD) GASTROINTESTINAL: Positive Obesity; Negative Gastrointestinal Disorders, Hepatitis or Colorectal Cancer GENITOURINARY: Negative Genitourinary Disorders, Renal Disease or Prostate Cancer REPRODUCTIVE: Positive Previous Pregnancies; Negative Breast Cancer or Testicular Cancer MUSCULOSKELETAL: Negative Musculoskeletal Disorders or Bone Cancer ENDOCRINE: Negative Endocrine Disorders, Diabetes Mellitus Type 1 or Diabetes Mellitus Type 2 HEMATOLOGIC: Positive Blood Disorders and Anemia; Negative Sickle Cell Disease PSYCHO/SOCIAL: Positive Schizophrenia, Bipolar Disorder, Depression, Anxiety and Self-Mutilation OTHER HISTORY: Positive Hospitalization and Falls; Negative Autoimmune Disease, Down Syndrome, Developmental Delay, Shingles, Blood Transfusions, Blood Transfusion Reaction, Anesthesia Reactions, Organ Transplant, Chemotherapy, Radiation Therapy, Hyperbaric Therapy, MRSA, VRSA, Vancomycin-Resistant Enterococci, Human Immunodeficiency Virus (HIV), Chicken Pox, Measles, Mumps, Rubella (Guyanese Measles), Pertussis, Clostridium Difficile, Cancer, Breast Cancer, Cervical Cancer, Colorectal Cancer, Lung Cancer, Ovarian Cancer, Prostate Cancer or Testicular Cancer Family History FAMILY HISTORY: Negative Family Psychiatric Problems, Family Respiratory Disorders, Family Cardiac Disorders, Family Gastrointestinal Problems, Family Cancer, Family Surgery or Family Anesthesia Reaction Surgical History SURGICAL: Positive Section (x2); Negative Organ Transplant Social History SMOKING STATUS: Never smoker SECOND HAND EXPOSURE: No SUBSTANCE USE: does not use ED Exam Narrative Physical exam: [General: Obese not in any acute distress Head normocephalic HEENT: Eyes pupils are PERRLA EOMs are intact although subsystems HEENT are within acceptable limits Neck is supple nontender Chest equal chest rise nontender to palpation Respiratory: Clear to auscultation no wheezes crackles or rubs CV: Rate rhythm is regular no murmurs rubs or clicks Abdomen is distended secondary to body habitus soft nontender surgical scar well-healed. Centerline surgical scar just above the pubis mound is an easily reducible outpouching that is visible when the patient is standing and absent when the patient is lying down. Mobile tender well-defined borders approximately 4 to 5 cm per palpation. Back: No CVA tenderness no spinous process tenderness from cervical spine thoracic and lumbar spine Skin: Intact no petechiae rash induration ulceration or crepitus Extremities: Moving all extremities against resistance cap refill less than 2 seconds neurosensory intact Neuro: Awake alert oriented x3 Glascow coma 15 no focal deficits] Course Quality Measures none Orders Category Date Time Status CT abdomen pelvis wo con Stat Exams 12/21/24 17:06 Completed HCG Qualitative,Urine Stat Lab 12/21/24 17:20 Completed Vital Signs Vital signs: Vital Signs Temperature 98.8 F 12/21/24 16:47 Pulse Rate 81 12/21/24 16:47 Respiratory Rate 20 12/21/24 16:47 Blood Pressure 104/71 12/21/24 16:47 Pulse Oximetry (%) 96 12/21/24 16:47 Oxygen Delivery Method Room Air 12/21/24 16:47 Discharge Plan Plan Patient Disposition: HOME (Self Care) Patient condition on transfer: Stable Prescriptions/Referrals Prescriptions/Med Rec: No Action PNV no.95-ferrous fumarate-FA [] 28 mg iron- 800 mcg Tablet 1 tab PO .q day ferrous sulfate 325 mg (65 mg iron) tablet 325 mg PO QDAY Qty: 30 0RF Referrals: Radha Rizzo PA-C [Primary Care Provider] - In 1 week Problem List Clinical Impression: Diastasis recti, Hernia, umbilical Patient/Caregiver Discharge Instructions Other Activity Instructions:: Follow-up with Dr. Schaeffer. If there is worsening of symptoms return the emergency room medially for further evaluation. Education Materials: ED Hernia (Adult) Print Language: Portuguese Stand Alone Forms: Liseth Award Info., Work/School Release, Patient Portal Info Letter PA/ESMER Supervising Physician PA/ESMER Supervising Physician: Vincent Skinner ENP MDM Clinical Information Provided by: patient Medical Records reviewed [facility] Meds/Rx considered, not ordered None Labs/Rad/Tests considered, not ordered None
[2024-12-21 18:16] LABS: HCG Qualitative,Urine Negative
== END 2024-12-21 19:57 | disposition home or self-care (01) ==
PROVIDERS: Registered Nurse General Practice; Emergency Provider Emergency Medicine; PCP Physician Assistant
DX: K42.9 Umbilical hernia without obstruction or gangrene (principal); M62.08 Separation of muscle (nontraumatic), other site
CPT/HCPCS: 74176; 81025; 99283

== ENCOUNTER 2025-02-03 23:12 | Emergency (ER) | payer MEDICAID, SELFPAY ==
[2025-02-03 23:13] VITALS: BMI 34.0
[2025-02-03 23:26] VITALS: BP 117/79; PULSE 89; RESP 20; TEMP 36.6; O2SAT 97
--- NOTE | 2025-02-03 23:35 | PD.EDRME ---
Rapid Medical Screening Exam [facility] Arrival date/time: 02/03/25 23:12 Chief Complaint: Vaginal Bleeding Vital signs: Vital Signs Temperature 98 F 02/03/25 23:26 Pulse Rate 89 02/03/25 23:26 Respiratory Rate 20 02/03/25 23:26 Blood Pressure 117/79 02/03/25 23:26 Pulse Oximetry (%) 97 02/03/25 23:26 Oxygen Delivery Method Room Air 02/03/25 23:26 E Narrative: 29-year-old female with a past medical history of 3 C-sections with 3 live births the last 1 was 5 months ago, 1 vaginal live who presents to the ER now on her fifth her home test, LMP 12-09-24 now complaining of vaginal bleeding and right sided pelvic pain which started at 5 PM. Patient's gone through 3 pads today. Exam: Constitutional: Vital Signs Reviewed. Well appearing. No acute distress. Not toxic appearing. Head: Normocephalic, atraumatic. Eyes: Conjunctiva clear. ENT: Mucous membranes moist. Clinical Impression: Pelvic pain vaginal bleeding night
--- NOTE | 2025-02-04 | XR_ITS ---
Examination: Complete OB ultrasound, less than 14 weeks, transabdominal Date and time of exam: February 04, 2025, 0025 hours INDICATIONS: Vaginal bleeding and pelvic cramping today Technique: Obstetrical ultrasound images less than 14 weeks performed via transabdominal imaging Findings: Uterus 9.2 cm Intrauterine gestational sac 0.74 cm corresponds to 5 weeks 3 days gestational age, gestational sac in the lower uterine segment No pole, no cardiac motion Right ovary 3.3 cm arterial flow Left ovary 2.0 cm arterial flow IMPRESSION: Findings most consistent with spontaneous in progress Recommend follow-up transvaginal pelvic sonography
[2025-02-04 00:06] LABS: Basophils # (Auto) 0.1 Thou/mm3 (0.0-0.2); Basophils % (Auto) 1 % (0-2.5); Eosinophils # (Auto) 0.1 Thou/mm3 (0.0-0.5); Eosinophils % (Auto) 1 % (0-10); Hematocrit 34.3 % (36.0-46.0); Hemoglobin 11.0 g/dL (12.0-16.0); Immature Granulocytes Auto 0.03 Thou/mm3 (0.00-0.00); Lymphocytes # (Auto) 3.4 Thou/mm3 (1.0-4.8); Lymphocytes % (Auto) 33 % (10-50); Mean Corpuscular HGB Conc 32.1 g/dl (31.0-37.0); Mean Corpuscular Hemoglobin 24.0 pg (25.0-35.0); Mean Corpuscular Volume 75 fL (80-100); Monocytes # (Auto) 0.9 Thou/mm3 (0.0-0.8); Monocytes % (Auto) 8 % (0-12); Neutrophils # (Auto) 5.8 Thou/mm3 (1.8-7.7); Neutrophils % (Auto) 57 % (37-80); Nucleated Red Blood Cell # 0.00 Thou/mm3 (0.00-0.00); Nucleated Red Blood Cell % 0 /100 WBC (0); Platelet Count 314 Thou/mm3 (140-440); RDW Standard Deviation 52.4 fL (36.4-46.3); Red Blood Count 4.58 Miln/mm3 (4.00-5.20); White Blood Count 10.2 Thou/mm3 (3.6-11.0)
[2025-02-04 00:35] LABS: Alanine Aminotransferase 9 U/L (10-49); Albumin, Serum 4.8 gm/dL (3.5-5.0); Albumin/Globulin Ratio 2.3 (1.2-2.2); Alkaline Phosphatase 55 U/L (46-116); Anion Gap 10 (7-16); Aspartate Amino Transferase 14 U/L (0-34); BUN/Creatinine Ratio 13 Ratio (12-20); Bilirubin,Total 0.3 mg/dL (0.3-1.2); Blood Urea Nitrogen 8 mg/dL (9-23); Calcium 9.6 mg/dL (8.3-10.6); Calcium (Corrected) 9.6 mg/dL (8.5-10.1); Carbon Dioxide 26.9 mMol/L (20.0-31.0); Chloride 105 mMol/L (98-107); Creatinine (Component) 0.6 mg/dL (0.6-1.3); Estimated Creatinine Clearance 136.4 mL/min (>60); Globulin 2.1 gm/dL (2.3-3.5); Glucose 116 mg/dL (74-106); Osmolality,Calculated 282 (275-295); Potassium 3.3 mMol/L (3.4-5.1); Sodium 142 mMol/L (136-145); Total Protein 6.9 gm/dL (5.7-8.2); eGFR > 60 See Note
--- NOTE | 2025-02-04 00:43 | PD.EDVAGBL ---
ED OB Contraction Preg RMI/HPI General Chief complaint: Vaginal Bleeding Stated complaint: VAGINAL BLEEDING, R. ABD PAIN, Arrival date/time: 02/03/25 23:12 RME / HPI RME / HPI Narrative: 29-year-old female with a past medical history of 3 C-sections with 3 live births the last 1 was 5 months ago, 1 vaginal live who presents to the ER now on her fifth her home test, LMP 12-09-24 now complaining of vaginal bleeding and right sided pelvic pain which started at 5 PM. Patient's gone through [address] Longoria?s Main ED Evaluation: 29yo female whose LMP was 11/29/24 reports having a positive home test, EGA 8-9 weeks now presenting with RLQ pain that radiates to the flank/lower back in addition to vaginal bleeding throughout the day. Pain is described as cramping in nature. No fever or chills. No frequency, urgency, or dysuria. PSH includes x3. PMH unremarkable. Social history unremarkable. NKA Related Data Home Medications ?Medication ?Instructions ?Recorded ?Confirmed vit no.95-ferrous 1 tab PO .q day 04/04/24 07/24/24 fumarate 28 mg-folic acid 800 mcg tablet () Previous Rx's ?Medication ?Instructions ?Recorded ferrous sulfate 325 mg (65 mg 325 mg PO QDAY #30 tabs 08/11/24 iron) tablet Allergies Allergy/AdvReac Type Severity Reaction Status Date / Time No Known Allergies Allergy Verified 02/03/25 23:13 Review of Systems Review of Systems Systems Reviewed: All systems reviewed, normal except as documented Past Medical History Past Medical History NEUROLOGIC: Negative Neurological Disorders or Seizures CARDIAC: Negative Cardiac Disorders or Congestive Heart Failure RESPIRATORY: Positive Asthma and Pneumonia; Negative Chronic Obstructive Pulmonary Disease (COPD) GASTROINTESTINAL: Positive Obesity; Negative Gastrointestinal Disorders, Hepatitis or Colorectal Cancer GENITOURINARY: Negative Genitourinary Disorders, Renal Disease or Prostate Cancer REPRODUCTIVE: Positive Previous Pregnancies; Negative Breast Cancer or Testicular Cancer MUSCULOSKELETAL: Negative Musculoskeletal Disorders or Bone Cancer ENDOCRINE: Negative Endocrine Disorders, Diabetes Mellitus Type 1 or Diabetes Mellitus Type 2 HEMATOLOGIC: Positive Blood Disorders and Anemia; Negative Sickle Cell Disease PSYCHO/SOCIAL: Positive Schizophrenia, Bipolar Disorder, Depression, Anxiety and Self-Mutilation OTHER HISTORY: Positive Hospitalization and Falls; Negative Autoimmune Disease, Down Syndrome, Developmental Delay, Shingles, Blood Transfusions, Blood Transfusion Reaction, Anesthesia Reactions, Organ Transplant, Chemotherapy, Radiation Therapy, Hyperbaric Therapy, MRSA, VRSA, Vancomycin-Resistant Enterococci, Human Immunodeficiency Virus (HIV), Chicken Pox, Measles, Mumps, Rubella (Belgian Measles), Pertussis, Clostridium Difficile, Cancer, Breast Cancer, Cervical Cancer, Colorectal Cancer, Lung Cancer, Ovarian Cancer, Prostate Cancer or Testicular Cancer Family History FAMILY HISTORY: Negative Family Psychiatric Problems, Family Respiratory Disorders, Family Cardiac Disorders, Family Gastrointestinal Problems, Family Cancer, Family Surgery or Family Anesthesia Reaction Surgical History SURGICAL: Positive Section (x2); Negative Organ Transplant Social History SMOKING STATUS: Never smoker SECOND HAND EXPOSURE: No SUBSTANCE USE: does not use ED Exam Narrative Physical exam: GENERAL APPEARANCE: alert and oriented x 4, nontoxic, well-developed, well-nourished, no acute distress VITALS: All vitals were reviewed and the pulse ox is 97% on room air, which is normal according to my interpretation. HEENT: Normocephalic, atraumatic; pupils equal, round, reactive to light; EOMI; mucous membranes pink, moist; oropharynx clear NECK: Supple LUNGS: CTABL; no wheezes, no rales, no rhonchi HEART: Regular rate, regular rhythm; normal S1, S2; no murmurs ABDOMEN: non distended; soft, mild RLQ tenderness, no peritoneal findings BACK: no CVA tenderness EXTREMITIES: atraumatic; no edema NEUROLOGIC: awake; alert and oriented x4; cranial nerves II-XII grossly intact; no focal sensory or motor deficits PSYCHIATRIC: appropriate mood and affect SKIN: warm, dry, normal color; no rashes Course Quality Measures none Orders Category Date Time Status US OB <= 14 weeks fetus Stat Exams 02/04/25 00:00 Taken US OB transvaginal Stat Exams 02/04/25 03:22 Taken ABO/RH Type - Stat Lab 02/04/25 00:00 Completed Beta HCG,Quantitative Stat Lab 02/03/25 23:51 Completed CBC Stat Lab 02/03/25 23:51 Completed CMP [Comprehensive Metabolic Panel] Stat Lab 02/03/25 23:51 Completed Acetaminophen Tab [Tylenol ES Tab] Med 02/04/25 01:37 Discontinued 1,000 mg PO X1 ONE Acetaminophen Tab [Tylenol Tab] Med 02/04/25 00:53 Discontinued 1,000 mg PO X1 ONE Prochlorperazine Inj [Compazine Inj] Med 02/04/25 00:55 Discontinued 2 mg IV X1 ONE Sodium Chloride 0.9% 1000 ml [Ns] 1,000 ml Med 02/04/25 00:53 Discontinued IV 999 mls/hr Vital Signs Vital signs: Vital Signs Temperature 98 F 02/03/25 23:26 Pulse Rate 89 02/03/25 23:26 Respiratory Rate 20 02/03/25 23:26 Blood Pressure 117/79 02/03/25 23:26 Pulse Oximetry (%) 97 02/03/25 23:26 Oxygen Delivery Method Room Air 02/03/25 23:26 Vaginal Bleeding MDM Narrative MDM Narrative: Scribe Attestation: 02/04/25 - Clover Marquez am scribing for and in the presence of Dr. Longoria. 29yo female whose LMP was 11/29/24 reports having a positive home test, EGA 8-9 weeks now presenting with RLQ pain that radiates to the flank/lower back in addition to vaginal bleeding throughout the day. Pain is described as cramping in nature. Please see PE findings. Lab markers demonstrate stable Hgb and HCG 5445. Pelvic US demonstrates what appears to be a gestational sac in the lower uterine segment. This may represent blighted ovum vs pseudosac. Case discussed with [employer]ING [employer]ACHINE OPERATOR, who recommends transvaginal US for further delineation given concern for ectopic . Repeat US demonstrates findings more consistent with blighted ovum. This information was conveyed to on-call WIRE STRAIGHTENING MACHINE OPERATOR, who suggested follow-up in 48 hours for repeat HCG and US. Patient data External records reviewed:: [facility] previous records (Per chart review, patient was seen here on 12/21/24 for diastasis recti.) Clinical information provided by:: patient Social determinants that could affect healthcare access:: none Patient has the following chronic illnesses:: schizophrenia, bipolar disorder, asthma How is presenting disease/condition affected by chronic disease/condition?: uneffected by Evaluation data The following diagnostics were reviewed and interpreted by me:: lab results and radiology exam(s) Lab and/or radiology exams considered but not ordered:: none Interpretation Summary: Obstetric ultrasound (transabdominal). February 04, 2025 at 0055 hours Clinical history: and vaginal bleed, elevated hcg of 5445 Technique: Real-time ultrasound was performed using Duplex scanning including arterial inflow, venous outflow, color and spectral Doppler analysis of both ovaries. Comparison: No prior study is available for comparison. Findings: A small anechoic sac-like structure is noted in the endometrial cavity of the lower uterus. The mean sac diameter measures 0.8 cm, corresponding to 5 weeks and 4 days. No pole or yolk sac is seen at this time. The uterus measures 9.2 x 4.7 x 6 cm. The endometrium in the upper uterus measures 1.5 cm. The right ovary measures 3.3 x 1.8 x 2.1 cm and is unremarkable. The left ovary measures 1.9 x 1.6 x 2 cm and is unremarkable. Both ovaries demonstrate color flow signal on Doppler evaluation. No adnexal mass is demonstrated. There is no free fluid in the pelvis. Impression: 1. Small anechoic structure in the endometrial cavity of the lower uterus without yolk sac or pole. This may represent an early intrauterine gestational sac, of indeterminate viability; possibility of in progress or a pseudosac with an occult ectopic cannot be entirely excluded. Suggest close clinical and sonographic followup. 2. Other findings as described above. This report has been electronically signed by: Nagi Shaver MD. Obstetric ultrasound?(transvaginal). February 04, 2025 at 0330 hours? ? Clinical history:?Rule out ectopic??? Technique:?Real-time ultrasound was performed using Duplex scanning including arterial inflow, venous outflow, color and spectral Doppler analysis of both ovaries.? Comparison:?No prior study available for comparison at the time of interpretation. ? Findings: There is gestational sac in the lower uterine segment with a single pole of mean gestational age 5 weeks and 6 days (CRL= 0.3 cm). No cardiac activity is present at this time. The yolk sac is demonstrated, measures 0.3 cm. ? The uterus measures 10.5 x 4.7 x 5.5 cm. There is a Nabothian cyst in the cervix. The right ovary measures 1.7 x 1.5 x 1.2 cm and demonstrates multiple follicles. The left ovary measures 2.4 x 1.7 x 1.8 cm and demonstrates a small follicles. Both ovaries demonstrate color flow and spectral waveforms on Doppler evaluation. No evidence of adnexal mass. There is a trace free fluid in the pelvis. ? Impression: Lower placed gestational sac with a single fetus of mean gestational age 5 weeks and 6 days. No cardiac activity identified at this time. This may be related to the early stage of gestation; possibility of nonviable gestation cannot be excluded. Suggest clinical and ultrasonographic followup. This report has been electronically signed by: Nagi Shaver MD. Medications / Prescriptions Medications or Prescriptions considered but not ordered:: none Medication administrations:: Medication Administration History Discontinued Medications Acetaminophen (Acetaminophen 325 Mg Tablet) 1,000 mg PO X1 ONE Stop: 02/04/25 00:54 Last Admin: 02/04/25 01:38 Dose: Not Given Documented By: AM Non-Admin Reason: Duplicate Medication on eMAR Acetaminophen (Acetaminophen 500 Mg Tablet) 1,000 mg PO X1 ONE Stop: 02/04/25 01:38 Last Admin: 02/04/25 01:45 Dose: 1,000 mg Documented By: SE Sodium Chloride (Ns) 1,000 mls @ 999 mls/hr IV .Q1H1M ONE Stop: 02/04/25 01:53 Last Infusion: 02/04/25 02:51 Dose: Infused Documented By: Admin: 02/04/25 01:37 Dose: 999 mls/hr Documented By: SE Prochlorperazine Edisylate (Prochlorperazine Inj 5 Mg/Ml Vial 2 Ml) 2 mg IV X1 ONE; Protocol Stop: 02/04/25 00:56 Last Admin: 02/04/25 01:38 Dose: 2 mg Documented By: SE see above Consultations Consultation(s) initiated? (list below): Yes Consultation #1 (Physician, Specialty, Details): Discussed case with Dr. Morin from [employer] regarding consultation. Discussed patients ED course, exam findings, labs, and radiology results. Recommends obtaining a transvaginal ultrasound. Time: 03:13 Consultation #2 (Physician, Specialty, Details): Discussed case with Dr. Morin from [employer]ACHINE OPERATOR regarding consultation. Discussed patients ED course, exam findings, labs, and radiology results. Recommends having the patient come back in 48 hours for repeat studies. Time: 05:14 Diagnosis Vaginal Bleeding Differential Diagnosis: threatened , menometrorrhagia, incomplete and ectopic without intrauterine Most likely diagnosis given after review of the tests above:: see clinical impression below Admission Indicated Admission indicated?: not indicated Admission Request Was there a request for admission?: No Disposition Plan Disposition Plan: Discharge Discharge Attestation Discharge Attestation: The patient and all family members were given an opportunity to ask questions and understood the discharge instructions. Discharge instructions specifically effects, indications for sooner follow up or return to the emergency department, and the expected course of current diagnosis. Patient condition: Stable Discharge Plan Plan Patient Disposition: HOME (Self Care) Discharge Disposition comment: Stable Prescriptions/Referrals Prescriptions/Med Rec: No Action PNV no.95-ferrous fumarate-FA [] 28 mg iron- 800 mcg Tablet 1 tab PO .q day ferrous sulfate 325 mg (65 mg iron) tablet 325 mg PO QDAY Qty: 30 0RF Referrals: Radha Rizzo PA-C [Primary Care Provider] - In 1 week Problem List Clinical Impression: Blighted ovum Impression comment: Blighted ovum Patient/Caregiver Discharge Instructions Other Activity Instructions:: Pelvic rest. Diet Instructions: Increase fluids. Education Materials: Understanding Blighted Ovum Additional Instructions: Pelvic rest. Increase fluids. Tylenol as needed for pain. Repeat ultrasound and hCG in 48 hours Print Language: Chinese Stand Alone Forms: Liseth Award Info., Patient Portal Info Letter
[2025-02-04 00:45] LABS: Beta HCG,Quantitative 5445 mIU/mL (<5.0)
[2025-02-04] MEDS: SODIUM CHLORIDE 0.9% 1000 ML 1,000 ML 999 ML IV (01:37)
[2025-02-04] MEDS: PROCHLORPERAZINE INJ 5 MG/ML VIAL 2 ML 2 MG IV (01:38)
[2025-02-04] MEDS: ACETAMINOPHEN 500 MG TABLET 1000 MG PO (01:45)
[2025-02-04 02:09] VITALS: BP 118/68; PULSE 77; RESP 18; TEMP 36.9; O2SAT 96
--- NOTE | 2025-02-04 02:40 | PRELIM_ITS ---
Obstetric ultrasound (transabdominal). February 04, 2025 at 0055 hours Clinical history: and vaginal bleed, elevated hcg of 5445 Technique: Real-time ultrasound was performed using Duplex scanning including arterial inflow, venous outflow, color and spectral Doppler analysis of both ovaries. Comparison: No prior study is available for comparison. Findings: A small anechoic sac-like structure is noted in the endometrial cavity of the lower uterus. The mean sac diameter measures 0.8 cm, corresponding to 5 weeks and 4 days. No pole or yolk sac is seen at this time. The uterus measures 9.2 x 4.7 x 6 cm. The endometrium in the upper uterus measures 1.5 cm. The right ovary measures 3.3 x 1.8 x 2.1 cm and is unremarkable. The left ovary measures 1.9 x 1.6 x 2 cm and is unremarkable. Both ovaries demonstrate color flow signal on Doppler evaluation. No adnexal mass is demonstrated. There is no free fluid in the pelvis. Impression: 1. Small anechoic structure in the endometrial cavity of the lower uterus without yolk sac or pole. This may represent an early intrauterine gestational sac, of indeterminate viability; possibility of in progress or a pseudosac with an occult ectopic cannot be entirely excluded. Suggest close clinical and sonographic followup. 2. Other findings as described above. Discussion Details: Results Discussed With : Dr. [place] at 02:29 AM 02/04/2025 Report Electronically Signed By: Nagi Burris 02/04/2025 2:39:58 AM [EST]
--- NOTE | 2025-02-04 03:22 | XR_ITS ---
Examination: OB Transvaginal ultrasound of the pelvis, complete Technique: Transvaginal sonographic images pelvis performed using stout scale imaging Exam date and time: February 04, 2025, 0330 hours INDICATIONS: Heavy vaginal bleeding and pelvic cramping beginning today. FINDINGS: Uterus 10.5 cm, pole 0.25 cm corresponds to 5 weeks 6 days gestational age No cardiac motion Right ovary 1.7 cm arterial flow. Left ovary 2.4 cm arterial flow small follicles IMPRESSION: Intrauterine gestation corresponding to 5 weeks 6 days gestational age, no cardiac motion Recommend short-term follow-up transvaginal pelvic sonography to confirm viability.
[2025-02-04 04:12] VITALS: BP 116/53; PULSE 63; RESP 16; TEMP 36.9; O2SAT 99
--- NOTE | 2025-02-04 05:10 | PRELIM_ITS ---
Obstetric ultrasound (transvaginal). February 04, 2025 at 0330 hours Clinical history: Rule out ectopic Technique: Real-time ultrasound was performed using Duplex scanning including arterial inflow, venous outflow, color and spectral Doppler analysis of both ovaries. Comparison: No prior study available for comparison at the time of interpretation. Findings: There is gestational sac in the lower uterine segment with a single pole of mean gestational age 5 weeks and 6 days (CRL= 0.3 cm). No cardiac activity is present at this time. The yolk sac is demonstrated, measures 0.3 cm. The uterus measures 10.5 x 4.7 x 5.5 cm. There is a Nabothian cyst in the cervix. The right ovary measures 1.7 x 1.5 x 1.2 cm and demonstrates multiple follicles. The left ovary measures 2.4 x 1.7 x 1.8 cm and demonstrates a small follicles. Both ovaries demonstrate color flow and spectral waveforms on Doppler evaluation. No evidence of adnexal mass. There is a trace free fluid in the pelvis. Impression: Lower placed gestational sac with a single fetus of mean gestational age 5 weeks and 6 days. No cardiac activity identified at this time. This may be related to the early stage of gestation; possibility of nonviable gestation cannot be excluded. Suggest clinical and ultrasonographic followup. Report Electronically Signed By: Nagi Burris 02/04/2025 5:08:57 AM [EST]
== END 2025-02-04 05:45 | disposition home or self-care (01) ==
PROVIDERS: Physician Assistant; Emergency Provider Emergency Medicine; PCP Physician Assistant
DX: O02.0 Blighted ovum and nonhydatidiform mole (principal); Z3A.08 8 weeks gestation of pregnancy
CPT/HCPCS: 36415; 76801; 76817; 80053; 84702; 85025; 86900; 86901; 96360; 99283; J0780; J7030; A9270